=== PATIENT | male | born 1970 | race Caucasian/White ===

== ENCOUNTER 2018-03-16 09:01 | Day surgery (SDC) | payer BC ==
[~2018-03-16 09:01] MED LIST: Buffered Lidocaine 0.9% SYRIN* 5 ML/SYR SYRINGE INTRADERM ONE; Bupivacaine 0.5% SDV PF* 30ML VIAL ONE; Lidocain 1% EPI 1:100,000 * 30 ML MDV ONE; Lidocaine 2% PF * 5 ML VIAL ONE; Propofol* 10 MG/ML 20 ML BTL IV PUSH ONE
[2018-03-16] MEDS ORDERED: Buffered Lidocaine 0.9% SYRIN* 5 ML/SYR SYRINGE ONE (09:07)
[2018-03-16] MEDS ORDERED: ceFAZolin 2 GM PREMIX in ORs 2 GM/50 ML BAG IVPB ONE (09:07)
[2018-03-16] MEDS ORDERED: Lidocaine 2% PF * 5 ML VIAL ONE (09:08)
[2018-03-16] MEDS ORDERED: Bupivacaine 0.5% SDV PF* 30ML VIAL ONE (09:08)
[2018-03-16] MEDS ORDERED: Dexmedetomidine* 200 MCG/2 ML 2 ML VIAL ONE (09:10)
[2018-03-16] MEDS ORDERED: Midazolam* 1 MG/ML 2 ML VIAL (2 MG) ONE ×2 (09:18→10:32)
[2018-03-16] MEDS ORDERED: fentaNYL* 50 MCG/ML 2 ML VIAL (100 MCG VIAL) ONE (09:18)
[2018-03-16] MEDS ORDERED: Flumazenil* 0.1 MG/ML 5 ML MDV ONE (09:47)
[2018-03-16] MEDS ORDERED: Phenylephrine INJ* 10 MG/ML 1 ML VIAL (10 MG) ONE (10:23)
[2018-03-16] MEDS ORDERED: Acetaminophen TAB* 325 MG PO PRN (11:15)
[2018-03-16] MEDS ORDERED: Naloxone* 0.4 MG/ML 1 ML VIAL IV PRN (11:15)
[2018-03-16] MEDS ORDERED: Ondansetron ODT TAB* 4 MG PO PRN (11:15)
[2018-03-16] MEDS ORDERED: Ketorolac INJ* 30 MG/ML 1 ML VIAL IV PRN (11:15)
[2018-03-16] MEDS ORDERED: HYDROmorphone INJ1* 1 MG/ML SYRINGE IV PRN (11:15)
[2018-03-16] MEDS ORDERED: oxyCODONE/Acetamin 5/325 MG* TAB PO PRN (12:12)
--- NOTE | 2018-03-16 12:12 | BRIEFOPN ---
Brief Operative Note - Surgery Procedures: Procedures OPERATIVE REPORT PRE-OP: Bilateral inguinal hernias POST-OP: Left indirect inguinal hernia, Right direct inguinal hernia PROCEDURE: Open repair with mesh of bilateral inguinal hernias SURGEON: MD Shital ANESTHESIA:Local with MAC, Spinal Dr. Baxter ASST: Sam Rivas NP IVF: 1 liter of crystalloid EBL: min SPECIMEN:none DRAIN: none WOUND CLASS: One COMPLICATIONS: none TO PACU
[2018-03-16] MEDS ORDERED: Ketorolac INJ* 30 MG/ML 1 ML VIAL ONE (12:14)
[2018-03-16] MEDS ORDERED: carBAMazepine TAB(*) 200 MG PO ONE (15:00)
[2018-03-16] MEDS ORDERED: oxyCODONE/Acetamin 5/325 MG* TAB ONE (17:33)
[2018-03-16 19:09] VITALS: BP 125/88
--- NOTE | 2018-03-17 05:03 | OP ---
CC: Chrystal Rojo NP, Primary Care * DATE OF OPERATION: 03/16/18 - [facility] DATE OF : 66 SURGEON: Damian Isaacs MD FOOT DOCTOR: Charis Rivas NP ANESTHESIOLOGIST: Dr. Baxter. ANESTHESIA: Spinal with local with monitored anesthesia care. PRE-OP DIAGNOSIS: Bilateral inguinal hernia. POST-OP DIAGNOSES: 1. Indirect left inguinal hernia. 2. Direct right inguinal hernia. OPERATIVE PROCEDURE: Open repair with mesh of bilateral inguinal hernias. ESTIMATED BLOOD LOSS: Minimal. IV FLUIDS: 1 L of crystalloid. SPECIMENS: None. WOUND CLASSIFICATION: 1. DRAINS: None. COMPLICATIONS: None. DESCRIPTION OF PROCEDURE: Written informed consent was obtained, both groins were marked with indelible ink and preoperative antibiotics were administered. The patient was taken to the operating room, placed in the supine position. A spinal anesthetic was administered per Anesthesia. Sequential compression devices and a warming blanket were applied. The bilateral lower abdomen and both groins were prepped and draped in usual sterile fashion. Time-out verification was completed. Initially, 0.25% Marcaine was infiltrated in the left groin and an oblique incision was made in the left groin several fingerbreadths above the inguinal crease. Idalia's fascia was divided and the external oblique aponeurosis was identified with the external ring. This was opened in the direction of its fibers to expose the inguinal floor. The spermatic cord was encircled with 1 quarter-inch [place]ha drain in the pubic tubercle. Careful evaluation of the inguinal floor revealed no evidence of a direct space hernia. The cord was evaluated and there was a gpnqe-li-lhalidls size indirect inguinal sac protruding through the inguinal ring, which was from the cord structures and reduced without difficulty. There was also a rather large cord lipoma, which was excised up into the internal ring and ligated as well. Next, the Covidien Bard pre-cut self-gripping mesh was placed and sutured to the pubic tubercle with a 0 Vicryl suture. It was attached to the conjoint tendon superiorly, the musculature laterally, and the inguinal ligament, and covered both direct and indirect spaces nicely without wrinkling or tension. This was not sutured into place. Hemostasis was assured and additional Marcaine was infiltrated. The external oblique aponeurosis was closed with a running 3-0 Vicryl suture. Idalia's fascia was closed with a running 3-0 Vicryl suture. The skin was approximated with subcuticular 4-0 Vicryl suture. Steri-Strips and sterile dressings were applied. Attention was then turned to the right side. Likewise, Marcaine was infiltrated and an oblique incision was made several fingerbreadths above the inguinal crease and carried down through the Idalia's fascia and the external oblique aponeurosis was identified. It was opened in the direction of its fibers to expose the underlying spermatic cord and inguinal floor. The cord structures were encircled with 1 quarter-inch [place] drain. Careful evaluation of the indirect space revealed a defect in the transversalis fascia of about 2 cm with protuberant fat, which was reduced easily. Careful evaluation of the spermatic cord and inguinal ring revealed no evidence of an indirect inguinal hernia and the inguinal ring was of expected caliber. I imbricated the direct space hernia with a running 3-0 Vicryl suture. Once again, the Covidien ProGrip pre-cut mesh was then placed and sutured to the pubic tubercle with a 0 Vicryl suture. It was placed over the conjoint tendon superiorly, the musculature laterally, as well as the inguinal ligament inferiorly with ProGripping side down. The mesh covered the direct space nicely without wrinkling or tension. Hemostasis was assured. Additional Marcaine was infiltrated. The external oblique aponeurosis was closed with a running 3-0 Vicryl suture. Idalia's fascia was closed with a running 3-0 Vicryl suture. The skin was approximated with subcuticular 4-0 Vicryl suture. Steri-Strips and sterile dressings were applied. The patient tolerated the procedure well and was taken to the recovery room in stable condition. [id number]/[facility] #: [id number] STEPHY
== END 2018-03-16 19:00 | disposition home or self-care (01) ==
LOC: OR 09:01
PROVIDERS: ATTEND Surgery
DX: K40.20 Bilateral inguinal hernia, without obstruction or gangrene, not specified as recurrent (principal); E03.9 Hypothyroidism, unspecified; I10 Essential (primary) hypertension; I48.0 Paroxysmal atrial fibrillation; Z88.8 Allergy status to other drugs, medicaments and biological substances
CPT/HCPCS: 93005; A9270-GY; C1781; J0690; J1885; J2250; J2704; J3010